=== PATIENT | male | born 1960 | race Caucasian/White ===

== ENCOUNTER 2023-08-02 06:19 | Day surgery (SDC) | payer OTHER, SELFPAY ==
[2023-07-22 09:05] LABS: Hematocrit 46.6 % (39.0-52.0); Hemoglobin 15.5 g/dL (13.0-18.0); Mean Corp Hgb Conc. 33.3 g/dL (33.0-37.0); Mean Corpuscular Hgb 30.3 pg (27.0-31.0); Mean Corpuscular Volume 91.2 fL (80.0-94.0); Platelet Count 236 10^3/uL (130-400); Red Blood Cell Count 5.11 10^6/uL (4.70-6.10); Red Cell Dist. Width 13.4 % (11.5-14.5); White Blood Cell Count 7.8 10^3/uL (4.8-10.8)
[2023-07-22 09:30] LABS: APTT 26.9 Sec (23.4-35.0); INR 0.98; PT 12.8 Sec (11.4-14.6)
[2023-07-22 09:31] LABS: ALT (SGPT) 43 U/L (0-50); AST (SGOT) 35 U/L (17-59); Albumin 4.4 g/dl (3.5-5.0); Alkaline Phosphatase 68 U/L (38-126); Blood Urea Nitrogen 16 mg/dl (9-20); Calcium 8.8 mg/dl (8.4-10.2); Carbon Dioxide 31 mmol/L (22-30); Chloride 102 mmol/L (98-107); Glucose 90 mg/dl (70-99); Potassium 3.8 mmol/L (3.5-5.1); Sodium 139 mmol/L (135-145); Total Protein 7.1 g/dl (6.3-8.2); eGFR > 60.00
[2023-07-22 14:22] VITALS: BMI 35.1
--- NOTE | 2023-07-22 15:11 | PTCARENOTE ---
Patients 04/04/23 EKG abnormal- reviewed by Dr. Rebolledo- no additional interventions required
[2023-08-02] VITALS (9 sets, daily range): BP systolic 127–180; BP diastolic 68–91
[2023-08-02] MEDS: TYLENOL 1000 MG PO (11:08)
[2023-08-02] MEDS: HEPARIN 5000 UNITS SC (11:09)
[2023-08-02] MEDS: NEURONTIN 300 MG PO (11:09)
[2023-08-02] MEDS: NORMOSOL-R 1000 IV (11:10)
--- NOTE | 2023-08-02 14:32 | OR.RPT ---
Operative Report
Operative Report
DATE OF OPERATION: August 02, 2023
PREOPERATIVE DIAGNOSIS: Left Thyroid Nodule - E041
POSTOPERATIVE DIAGNOSIS: Same
SURGEON: Neel Rodriguez M.D.
OPERATION: Left Thyroidectomy and Limited Neck Dissection - 99647
ANESTHESIA: GET
ESTIMATED BLOOD LOSS: 3 cc
DRAINS: None
SPECIMEN: left total thyroid lobe and isthmus and left level paratracheal tissue
FINDINGS: left thyroid nodule
COMPLICATIONS:�None
PROCEDURE:
The patient was taken to the operating room and placed in the usual supine position. After adequate general endotracheal anesthesia was established, the patient�s neck was extended, prepped, and draped in the typical sterile fashion. A 5 cm
transcervical incision was made two fingerbreadths above the sternal notch. The skin incision was made with the #15 blade, which was taken through the skin into the subcutaneous tissue. The underlying platysma muscle was divided, and subplatysmal
flaps were created superiorly to the thyroid cartilage and inferiorly to the sternal notch. Strap muscles were identified and at the midline.
Attention was turned to the patient�s left thyroid lobe. The left thyroid lobe was mobilized medially. During this process, the left middle thyroid vein and inferior thyroid artery were dissected and ligated with Ligasure. There was a substernal
extension, which was delivered out of the mediastinum through the cervical incision. Next, the left superior pole was taken down by dissecting and transecting the superior pole vessels with a Ligasure. The left thyroid lobe was mobilized medially.
During this process, the left recurrent laryngeal nerve was identified and preserved throughout its entire course. The left superior parathyroid gland was identified and preserved. The left inferior parathyroid gland was not identified. The left
thyroid lobe with isthmus was resected off the trachea and sent to the pathology department.
At this time, the left neck dissection was performed. The tissue between the left carotid artery to the trachea into the anterior mediastinum was carefully dissected. The previously identified recurrent laryngeal nerve and parathyroid glands were
preserved. The tissue was removed and sent to the pathology department.
After obtaining adequate hemostasis, the strap muscle was approximated with #3-0 Vicryl in a running fashion, and platysma muscles were reapproximated with #3-0 Vicryl in an interrupted fashion, and the skin was approximated with #4-0 Monocryl in a
running subcuticular fashion. Steri-strips and sterile dressings were placed. The patient tolerated the procedure well. The final instrument, needle, and sponge counts were correct.
[2023-08-02] MEDS: ZOFRAN 4 MG IV (14:59)
== END 2023-08-02 16:20 | disposition home or self-care (01) ==
LOC: SDS 06:19
PROVIDERS: ATTENDING PHYSICIAN Surgery; FAMILY PHYSICIAN Internal Medicine
DX: C73 Malignant neoplasm of thyroid gland (principal)
CPT/HCPCS: 60252; 88305; 88307; 36415; 80053; 85027; 85610; 85730

== ENCOUNTER → 2023-09-29 09:05 | Outpatient (REF) | payer OTHER, SELFPAY ==
[2023-09-29 10:41] LABS: Total Thyroxine 7.44 ug/dl (5.5-11.0)
[2023-09-29 10:55] LABS: TSH 2.76 uIU/ml (0.47-4.68)
[2023-09-30 15:20] LABS: Total T3 (Sendout) 111 ng/dL (80-200)
== END ==
LOC: REG 09:05
PROVIDERS: ATTENDING PHYSICIAN Surgery
DX: E04.1 Nontoxic single thyroid nodule (principal)
CPT/HCPCS: 36415; 84436; 84443; 84480

== ENCOUNTER → 2023-11-30 | Outpatient (REF) | payer OTHER, SELFPAY | LOC: DHSLP | PROVIDERS: ATTENDING PHYSICIAN Internal Medicine Critical Care Medicine; FAMILY PHYSICIAN Internal Medicine | DX: G47.33 Obstructive sleep apnea (adult) (pediatric) (principal) | CPT/HCPCS: 95800 ==

== ENCOUNTER → 2024-04-25 06:33 | Outpatient (REF) | payer OTHER, SELFPAY | LOC: RAD 06:33 | PROVIDERS: ATTENDING PHYSICIAN Internal Medicine Critical Care Medicine; FAMILY PHYSICIAN Internal Medicine | DX: R91.8 Other nonspecific abnormal finding of lung field (principal) | CPT/HCPCS: 71250 ==

== ENCOUNTER → 2024-04-26 07:12 | Outpatient (REF) | payer OTHER, SELFPAY | LOC: HWRAD 07:12 | PROVIDERS: ATTENDING PHYSICIAN Surgery; FAMILY PHYSICIAN Internal Medicine | DX: C73 Malignant neoplasm of thyroid gland (principal); Z85.850 Personal history of malignant neoplasm of thyroid | CPT/HCPCS: 76536 ==